=== PATIENT | male | born 1940 | race Caucasian/White ===

== ENCOUNTER 2019-07-13 17:06 | Emergency (ER) | payer MEDICARE ==
[~2019-07-13 17:06] MED LIST: Iopamidol-370 76% 500 ML 1 ML ONE
[2019-07-13 18:12] LABS: #Eosinphils 0.4 thou/uL (0.0-0.7); #Lymphocytes 1.2 thou/uL (1.20-3.40); #Monocytes 0.6 thou/uL (0.11-0.59); #Neutrophils 3.3 thou/uL (1.40-6.50); %Basophils 0.5 % (0.0-1.0); %Eosinophils 6.9 % (0.0-10.0); %Monocytes 11.8 % (0.0-10.0); %Neutrophils 59.9 % (42.0-75.0); Mean Corpuscular HGB CONC 33.3 g/dL (32.0-36.0); Mean Corpuscular Hemoglobin 33.1 pg (27.0-31.0); Mean Corpuscular Volume 99.2 fL (78.0-98.0); Platelet Count 181 thou/uL (130-400); RBC Distribution Width 11.1 % (11.5-14.5); Red Blood Cell (RBC) Count 3.62 mill/uL (4.70-6.10); White Blood Cell (WBC) Count 5.5 thou/uL (4.8-10.8)
--- NOTE | 2019-07-13 18:29 | RAD ---
XR Chest 1 View Portable History: Pain Comparison: None. Findings: The lungs are clear. No pneumothorax. No effusion. No acute osseous abnormality. Multiple m idline sternotomy wires. Impression: No acute intrathoracic abnormality.
[2019-07-13 18:34] LABS: ALT (SGPT) 26 U/L (8-55); AST (SGOT) 21 U/L (5-34); Albumin 4.1 g/dL (3.4-4.8); Alkaline Phosphatase 68 U/L (40-110); Anion Gap 10 mmol/L (10-20); BUN (Urea Nitrogen) 13 mg/dL (8.4-25.7); Bilirubin, Total 0.4 mg/dL (0.2-1.2); Calc. Creatinine Clearance 0 mL/min (70-130); Calcium 9.2 mg/dL (7.8-10.44); Carbon Dioxide 31 mmol/L (23-31); Chloride 105 mmol/L (98-107); Estimated GFR-MDRD Greater than 90; Globulin 2.7 g/dL (2.4-3.5); Glucose 79 mg/dL (83-110); Potassium 4.3 mmol/L (3.5-5.1); Protein, Total 6.8 g/dL (5.8-8.1); Sodium 142 mmol/L (136-145)
--- NOTE | 2019-07-13 21:27 | CT ---
CTA Angio Lwr Ext Lt W WO History: Decreased circulation Comparison: None. Findings: CT angiogram of the left lower extremity was performed after the intravenous administration of contrast. 3-D rendering provided. Visualized intrapelvic soft tissues are unremarkable. There is no acute osseous abnormality. Enthesop athic changes of the greater trochanter. The motion artifact limits evaluation of the ankle. The common femoral artery is patent with mild atherosclerotic plaque. Deep femoral artery and femoral artery are both patent. Surgical clips along the medial aspect of the left thigh. Multifocal less than 30% stenoses of the popliteal artery. Anterior tibial artery takeoff is normal. There is a focal 70% stenosis of the posterior tibial artery 2 cm distal to the trifurcation. Extensive atherosclerotic plaque throughout the peroneal artery and posterior tibial artery with mult ifocal 50% stenoses. Evaluation of the dorsalis pedis anterior tibial artery and posterior tibial artery of the ankle is limited due to patient movement. Anterior tibial artery is patent. Peroneal ar paola is patent. Impression: Patent vasculature to the foot although ankle evaluation is limited due to extensive cassy on. There is a focal high-grade stenosis of the posterior tibial artery with extensive atherosclerotic plaque of the posterior tibial artery. No focal high-grade stenosis of the common fem oral, femoral, or popliteal arteries.
== END 2019-07-13 22:36 | disposition home or self-care (01) ==
LOC: ERS 17:06
DX: M79.652 Pain in left thigh (principal); I25.10 Atherosclerotic heart disease of native coronary artery without angina pectoris; Z79.82 Long term (current) use of aspirin; Z79.899 Other long term (current) drug therapy
CPT/HCPCS: 36415; 71045; 80053; 84484; 85025; 85379; 93005; 94760; Q9967

== ENCOUNTER 2021-05-01 22:55 | Inpatient (IN) | payer MEDICARE, OTHER ==
[2021-05-02] MEDS ORDERED: Morphine 4 MG/ML VIAL ONE ×2 (00:15→01:13)
[2021-05-02] MEDS ORDERED: Acetaminophen 500 MG TAB ONE (00:15)
[2021-05-02 00:34] LABS: #Eosinphils 0.4 thou/uL (0.0-0.7); #Lymphocytes 1.2 thou/uL (1.20-3.40); #Monocytes 0.8 thou/uL (0.11-0.59); #Neutrophils 4.3 thou/uL (1.40-6.50); %Basophils 0.3 % (0.0-1.0); %Eosinophils 5.7 % (0.0-10.0); %Lymphocytes 17.7 % (21.0-51.0); %Monocytes 11.4 % (0.0-10.0); Hemoglobin 11.8 g/dL (14.0-18.0); Mean Corpuscular HGB CONC 34.4 g/dL (32.0-36.0); Mean Corpuscular Hemoglobin 34.6 pg (27.0-31.0); Mean Platelet Volume 7.1 fL (7.4-10.4); Platelet Count 177 thou/uL (130-400); RBC Distribution Width 10.7 % (11.5-14.5); Red Blood Cell (RBC) Count 3.42 mill/uL (4.70-6.10); White Blood Cell (WBC) Count 6.5 thou/uL (4.8-10.8)
[2021-05-02 00:47] LABS: Prothrombin Time 13.5 sec (12.0-14.7)
[2021-05-02 00:48] LABS: PTT 37.1 sec (22.9-36.1)
[2021-05-02 00:53] LABS: ALT (SGPT) 14 U/L (8-55); AST (SGOT) 16 U/L (5-34); Albumin 3.6 g/dL (3.4-4.8); Alkaline Phosphatase 71 U/L (40-110); Anion Gap 11 mmol/L (10-20); BUN (Urea Nitrogen) 20 mg/dL (8.4-25.7); Bilirubin, Total 0.4 mg/dL (0.2-1.2); Calc. Creatinine Clearance 0 mL/min (70-130); Calcium 8.9 mg/dL (7.8-10.44); Carbon Dioxide 30 mmol/L (23-31); Chloride 104 mmol/L (98-107); Globulin 2.6 g/dL (2.4-3.5); Glucose 144 mg/dL (83-110); Potassium 4.1 mmol/L (3.5-5.1); Protein, Total 6.2 g/dL (5.8-8.1); Sodium 141 mmol/L (136-145)
[2021-05-02] MEDS ORDERED: Cephalexin 250 MG CAP PO SCH (01:30)
[2021-05-02] MEDS ORDERED: Acetaminophen 325 MG TAB PO PRN (01:34)
[2021-05-02] MEDS ORDERED: Ondansetron ODT 4 MG TAB PO PRN (01:34)
[2021-05-02] MEDS ORDERED: hydrALAZINE 20 MG/ML VIAL SLOW IVP PRN (01:36)
[2021-05-02] MEDS ORDERED: Morphine 2 MG/ML VIAL SLOW IVP PRN (01:36)
[2021-05-02] MEDS ORDERED: Cephalexin 250 MG CAP ONE (02:14)
[2021-05-02 03:17] VITALS: BMI 19.3
[2021-05-02 04:14] LABS: #Eosinphils 0.1 thou/uL (0.0-0.7); #Lymphocytes 0.7 thou/uL (1.20-3.40); #Monocytes 0.5 thou/uL (0.11-0.59); #Neutrophils 6.6 thou/uL (1.40-6.50); %Basophils 0.1 % (0.0-1.0); %Eosinophils 0.8 % (0.0-10.0); %Lymphocytes 9.1 % (21.0-51.0); %Neutrophils 84.1 % (42.0-75.0); Hemoglobin 10.7 g/dL (14.0-18.0); Mean Corpuscular HGB CONC 33.3 g/dL (32.0-36.0); Mean Corpuscular Hemoglobin 33.5 pg (27.0-31.0); Mean Platelet Volume 7.2 fL (7.4-10.4); Platelet Count 162 thou/uL (130-400); RBC Distribution Width 10.6 % (11.5-14.5); Red Blood Cell (RBC) Count 3.18 mill/uL (4.70-6.10); White Blood Cell (WBC) Count 7.8 thou/uL (4.8-10.8)
[2021-05-02 04:31] LABS: ALT (SGPT) 14 U/L (8-55); AST (SGOT) 16 U/L (5-34); Albumin 3.5 g/dL (3.4-4.8); Alkaline Phosphatase 64 U/L (40-110); Anion Gap 9 mmol/L (10-20); BUN (Urea Nitrogen) 20 mg/dL (8.4-25.7); Bilirubin, Total 0.4 mg/dL (0.2-1.2); Calc. Creatinine Clearance 56 mL/min (70-130); Calcium 8.8 mg/dL (7.8-10.44); Carbon Dioxide 32 mmol/L (23-31); Chloride 103 mmol/L (98-107); Globulin 2.5 g/dL (2.4-3.5); Glucose 149 mg/dL (83-110); Potassium 4.3 mmol/L (3.5-5.1); Sodium 140 mmol/L (136-145)
[2021-05-02] MEDS: Cephalexin 250 MG CAP PO SCH (19:03)
[2021-05-02 19:22] LABS: SARS-CoV-2 PCR by NAA Not Detected (NotDetected)
[2021-05-02] MEDS: Atorvastatin Calcium 10 MG TAB PO SCH (20:21)
[2021-05-03] MEDS: Cephalexin 250 MG CAP PO SCH ×2 (00:25→05:31)
[2021-05-03] MEDS ORDERED: Morphine 2 MG/ML VIAL SLOW IVP SCH (09:30)
[2021-05-03 09:42] LABS: Hemoglobin 11.2 g/dL (14.0-18.0); Mean Corpuscular HGB CONC 34.2 g/dL (32.0-36.0); Mean Corpuscular Hemoglobin 34.2 pg (27.0-31.0); Mean Platelet Volume 7.1 fL (7.4-10.4); Platelet Count 203 thou/uL (130-400); RBC Distribution Width 10.9 % (11.5-14.5); Red Blood Cell (RBC) Count 3.29 mill/uL (4.70-6.10); White Blood Cell (WBC) Count 6.6 thou/uL (4.8-10.8)
[2021-05-03 09:55] LABS: INR-International Normal Ratio 1.1; Prothrombin Time 14.5 sec (12.0-14.7)
[2021-05-03 09:58] LABS: Anion Gap 17 mmol/L (10-20); BUN (Urea Nitrogen) 16 mg/dL (8.4-25.7); Calc. Creatinine Clearance 56 mL/min (70-130); Calcium 8.8 mg/dL (7.8-10.44); Carbon Dioxide 22 mmol/L (23-31); Chloride 104 mmol/L (98-107); Glucose 127 mg/dL (83-110); Potassium 3.8 mmol/L (3.5-5.1); Sodium 139 mmol/L (136-145)
[2021-05-03] MEDS ORDERED: CEFAZOLIN 1 GM in Sodium Chloride 0.9% 100 ML IVPB SCH (10:00)
[2021-05-03] MEDS ORDERED: ceFAZolin 1 GM/D5W 1 GM in Premix Bag 1 BAG IVPB SCH ×2 (10:15→18:00)
[2021-05-03] MEDS ORDERED: Vancomycin 1 GM in Premix Bag 1 BAG IVPB SCH (10:30)
[2021-05-03] MEDS ORDERED: CEFAZOLIN 1 GM VIAL ONE ×2 (10:47→11:28)
[2021-05-03] MEDS ORDERED: Gentamicin 80 MG/2 ML VIAL ONE ×2 (10:48→11:28)
[2021-05-03] MEDS: Finasteride 5 MG TAB PO SCH (10:56)
[2021-05-03] MEDS: Mirtazapine 15 MG Soltab PO SCH (10:57)
[2021-05-03] MEDS: Tamsulosin HCl 0.4 MG CAP PO SCH (10:57)
[2021-05-03] MEDS ORDERED: Fentanyl 100 MCG/2 ML VIAL ONE (11:16)
[2021-05-03] MEDS ORDERED: Midazolam HCl 2 mg/2 ml Vial ONE (11:17)
[2021-05-03] MEDS: HYDROcodone/Acetaminophen 5/325 mg Tablet PO PRN (13:53)
[2021-05-03] MEDS: Morphine 2 MG/ML VIAL SLOW IVP PRN (16:25)
[2021-05-03] MEDS: Atorvastatin Calcium 10 MG TAB PO SCH (20:16)
[2021-05-03] MEDS: CEFAZOLIN 2 GM in Premix Bag 1 BAG IVPB SCH (20:17)
[2021-05-04] MEDS: CEFAZOLIN 2 GM in Premix Bag 1 BAG IVPB SCH ×2 (04:13→11:56)
[2021-05-04] MEDS: Mirtazapine 15 MG Soltab PO SCH (08:35)
[2021-05-04] MEDS: Finasteride 5 MG TAB PO SCH (08:35)
[2021-05-04] MEDS: Tamsulosin HCl 0.4 MG CAP PO SCH (08:36)
[2021-05-04] MEDS: HYDROcodone/Acetaminophen 5/325 mg Tablet PO PRN (08:36)
[2021-05-04] MEDS: Morphine 2 MG/ML VIAL SLOW IVP PRN (12:05)
[2021-05-04] MEDS ORDERED: Polyethylene Glycol 3350 17 GM Packet PO PRN (18:31)
[2021-05-04] MEDS ORDERED: Docusate 100 MG CAP PO PRN (18:31)
[2021-05-04] MEDS: Atorvastatin Calcium 10 MG TAB PO SCH (20:29)
[2021-05-05 08:15] VITALS: BP 99/56; TEMP 97.3
[2021-05-05] MEDS: Mirtazapine 15 MG Soltab PO SCH (09:15)
[2021-05-05] MEDS: Tamsulosin HCl 0.4 MG CAP PO SCH (09:15)
[2021-05-05] MEDS: Finasteride 5 MG TAB PO SCH (09:15)
== END 2021-05-05 11:42 | disposition home or self-care (01) | DRG 908 ==
LOC: ERS 22:55 → OBSVTOIN 05-02 01:34 → 2NO 05-02 01:34
PROVIDERS: ADMIT Internal Medicine; ATTEND Family Medicine
PROC: 0K9H0ZZ Drainage of Right Thorax Muscle, Open Approach (ICD-10-PCS; principal; 2021-05-03)
PROC: 0W380ZZ Control Bleeding in Chest Wall, Open Approach (ICD-10-PCS; 2021-05-03)
DX: I97.638 Postprocedural hematoma of a circulatory system organ or structure following other circulatory system procedure (principal); I50.22 Chronic systolic (congestive) heart failure; I48.3 Typical atrial flutter; Y83.1 Surgical operation with implant of artificial internal device as the cause of abnormal reaction of the patient, or of later complication, without mention of misadventure at the time of the procedure; Z20.822 Contact with and (suspected) exposure to COVID-19; I25.10 Atherosclerotic heart disease of native coronary artery without angina pectoris; I25.5 Ischemic cardiomyopathy; I11.0 Hypertensive heart disease with heart failure; R79.1 Abnormal coagulation profile; H91.90 Unspecified hearing loss, unspecified ear; E78.00 Pure hypercholesterolemia, unspecified; I48.0 Paroxysmal atrial fibrillation; N40.0 Benign prostatic hyperplasia without lower urinary tract symptoms; I44.7 Left bundle-branch block, unspecified; E78.5 Hyperlipidemia, unspecified; Z95.1 Presence of aortocoronary bypass graft; Z88.8 Allergy status to other drugs, medicaments and biological substances; Z79.899 Other long term (current) drug therapy; Z79.82 Long term (current) use of aspirin
CPT/HCPCS: 36415; 71045; 80048; 80053; 84484; 85025; 85027; 85610; 85730; 96374; 96376; 99152; 99153; C1763; J0360; J0690; J1580; J2250; J2270; J3010; J3370; Q0162; U0003; U0005

== ENCOUNTER 2021-05-07 17:29 | Inpatient (IN) | payer MEDICARE ==
[2021-05-07 18:33] LABS: #Lymphocytes 0.8 thou/uL (1.20-3.40); #Monocytes 0.9 thou/uL (0.11-0.59); #Neutrophils 11.8 thou/uL (1.40-6.50); %Basophils 0.1 % (0.0-1.0); %Lymphocytes 6.2 % (21.0-51.0); %Monocytes 6.9 % (0.0-10.0); %Neutrophils 86.8 % (42.0-75.0); Hemoglobin 8.6 g/dL (14.0-18.0); Mean Corpuscular HGB CONC 35.1 g/dL (32.0-36.0); Mean Corpuscular Hemoglobin 34.8 pg (27.0-31.0); Mean Corpuscular Volume 99.1 fL (78.0-98.0); Mean Platelet Volume 6.8 fL (7.4-10.4); Platelet Count 190 thou/uL (130-400); RBC Distribution Width 11.2 % (11.5-14.5); Red Blood Cell (RBC) Count 2.47 mill/uL (4.70-6.10); White Blood Cell (WBC) Count 13.6 thou/uL (4.8-10.8)
[2021-05-07] MEDS ORDERED: Lorazepam 2 MG/ML VIAL ONE (18:43)
[2021-05-07 18:45] LABS: INR-International Normal Ratio 1.1; PTT 33.1 sec (22.9-36.1); Prothrombin Time 14.3 sec (12.0-14.7)
[2021-05-07 18:58] LABS: ALT (SGPT) 10 U/L (8-55); AST (SGOT) 19 U/L (5-34); Albumin 3.7 g/dL (3.4-4.8); Alkaline Phosphatase 64 U/L (40-110); Anion Gap 14 mmol/L (10-20); BUN (Urea Nitrogen) 19 mg/dL (8.4-25.7); Bilirubin, Total 1.1 mg/dL (0.2-1.2); Calc. Creatinine Clearance 0 mL/min (70-130); Calcium 8.7 mg/dL (7.8-10.44); Carbon Dioxide 24 mmol/L (23-31); Chloride 103 mmol/L (98-107); Globulin 2.5 g/dL (2.4-3.5); Glucose 107 mg/dL (83-110); Potassium 3.6 mmol/L (3.5-5.1); Protein, Total 6.2 g/dL (5.8-8.1); Sodium 137 mmol/L (136-145)
[2021-05-07 19:05] LABS: SARS-CoV-2 NAA Rapid Test Not Detected (NotDetected)
[2021-05-07 19:22] LABS: CKMB 1.2 ng/mL (0-6.6)
[2021-05-07 19:59] LABS: Bacteria/HPF None Seen HPF (None Seen); Bilirubin Negative (Negative); Blood, Urine Trace (Negative); Clarity Turbid (Clear); Glucose, Urine (Dipstick) Normal (Negative); Ketone, Urine Trace mg/dL (Negative); Leukocyte Negative Leu/uL (Negative); Nitrite Negative (Negative); Protein, Urine (Dipstick) Negative (Neg-Trace); Specific Gravity, Urine 1.018 (1.002-1.036); Squamous Epithelial None Seen HPF (0-3); Urobilinogen Normal mg/dL (Less than 2); WBC/HPF 0-3 HPF (0-3); pH, Urine 7.5 (5.0-9.0)
[2021-05-07] MEDS ORDERED: cefTRIAXone\\ROCEPHIN 1 GM VIAL ONE (20:15)
[2021-05-07] MEDS ORDERED: Furosemide 40 MG/4 ML VIAL ONE (20:15)
[2021-05-07] MEDS ORDERED: Azithromycin 500 MG VIAL ONE (21:26)
[2021-05-07 22:08] LABS: Troponin I 0.049 ng/mL (< 0.028)
[2021-05-08 01:36] LABS: Troponin I 0.045 ng/mL (< 0.028)
[2021-05-08] MEDS ORDERED: VANCOMYCIN 1.25 GM/250 ML BAG 1.25 GM in Premix Bag 1 BAG IVPB SCH (02:34)
[2021-05-08] MEDS ORDERED: Sodium Chloride 0.9% 1,000 ML IV SCH (02:45)
[2021-05-08] MEDS ORDERED: Piperacillin/Tazobactam 3.375 GM in Sodium Chloride 0.9% 100 ML IVPB SCH (03:00)
[2021-05-08] MEDS: Sodium Chloride 0.9% 1,000 ML IV SCH (03:40)
[2021-05-08] MEDS ORDERED: Vancomycin 1.5 GRAM/300 ML BAG 1.5 GM in Premix Bag 1 BAG IVPB SCH (04:00)
[2021-05-08] MEDS: Piperacillin/Tazobactam 3.375 GM in Sodium Chloride 0.9% 100 ML IVPB SCH ×3 (08:16→23:23)
[2021-05-08 08:53] LABS: #Eosinphils 0.1 thou/uL (0.0-0.7); #Lymphocytes 0.9 thou/uL (1.20-3.40); #Monocytes 0.7 thou/uL (0.11-0.59); #Neutrophils 5.1 thou/uL (1.40-6.50); %Basophils 0.1 % (0.0-1.0); %Eosinophils 1.4 % (0.0-10.0); %Lymphocytes 12.7 % (21.0-51.0); %Monocytes 10.6 % (0.0-10.0); %Neutrophils 75.3 % (42.0-75.0); Hemoglobin 7.6 g/dL (14.0-18.0); Mean Corpuscular HGB CONC 33.6 g/dL (32.0-36.0); Mean Platelet Volume 7.2 fL (7.4-10.4); Platelet Count 190 thou/uL (130-400); RBC Distribution Width 11.4 % (11.5-14.5); Red Blood Cell (RBC) Count 2.24 mill/uL (4.70-6.10); White Blood Cell (WBC) Count 6.7 thou/uL (4.8-10.8)
[2021-05-09] MEDS: Vancomycin 1 GM in Premix Bag 1 BAG IVPB SCH ×2 (03:55→09:56)
[2021-05-09] MEDS ORDERED: Finasteride 5 MG TAB PO SCH (09:45)
[2021-05-09] MEDS ORDERED: Tamsulosin HCl 0.4 MG CAP PO SCH (09:45)
[2021-05-09] MEDS: Sodium Chloride 0.9% 1,000 ML IV SCH (09:56)
[2021-05-09] MEDS: Piperacillin/Tazobactam 3.375 GM in Sodium Chloride 0.9% 100 ML IVPB SCH ×2 (09:58→16:06)
[2021-05-09 11:13] LABS: #Eosinphils 0.3 thou/uL (0.0-0.7); #Lymphocytes 0.7 thou/uL (1.20-3.40); #Monocytes 0.6 thou/uL (0.11-0.59); #Neutrophils 3.9 thou/uL (1.40-6.50); %Basophils 0.2 % (0.0-1.0); %Eosinophils 4.7 % (0.0-10.0); %Lymphocytes 12.8 % (21.0-51.0); %Monocytes 11.7 % (0.0-10.0); %Neutrophils 70.7 % (42.0-75.0); Hemoglobin 9.1 g/dL (14.0-18.0); Mean Corpuscular HGB CONC 34.2 g/dL (32.0-36.0); Mean Corpuscular Hemoglobin 34.6 pg (27.0-31.0); Mean Platelet Volume 6.9 fL (7.4-10.4); Platelet Count 208 thou/uL (130-400); RBC Distribution Width 11.5 % (11.5-14.5); Red Blood Cell (RBC) Count 2.63 mill/uL (4.70-6.10); White Blood Cell (WBC) Count 5.5 thou/uL (4.8-10.8)
[2021-05-09] MEDS: Atorvastatin Calcium 10 MG TAB PO SCH (20:58)
[2021-05-10] MEDS: Piperacillin/Tazobactam 3.375 GM in Sodium Chloride 0.9% 100 ML IVPB SCH ×3 (00:25→16:46)
[2021-05-10] MEDS: Sodium Chloride 0.9% 1,000 ML IV SCH ×2 (04:26→15:42)
[2021-05-10] MEDS: Vancomycin 1 GM in Premix Bag 1 BAG IVPB SCH ×2 (05:18→15:13)
[2021-05-10 05:52] LABS: Vancomycin, Trough 3.5 ug/mL
[2021-05-10] MEDS: Tamsulosin HCl 0.4 MG CAP PO SCH (08:38)
[2021-05-10] MEDS: Mirtazapine 15 MG Soltab PO SCH (08:38)
[2021-05-10] MEDS: Finasteride 5 MG TAB PO SCH (08:38)
[2021-05-10 13:46] LABS: Anion Gap 12 mmol/L (10-20); BUN (Urea Nitrogen) 9 mg/dL (8.4-25.7); Calc. Creatinine Clearance 52 mL/min (70-130); Calcium 8.5 mg/dL (7.8-10.44); Carbon Dioxide 26 mmol/L (23-31); Chloride 106 mmol/L (98-107); Glucose 129 mg/dL (83-110); Magnesium 2.2 mg/dL (1.6-2.6); Potassium 3.3 mmol/L (3.5-5.1); Sodium 141 mmol/L (136-145)
[2021-05-10] MEDS: Atorvastatin Calcium 10 MG TAB PO SCH (22:17)
[2021-05-11] MEDS: Piperacillin/Tazobactam 3.375 GM in Sodium Chloride 0.9% 100 ML IVPB SCH ×3 (01:28→18:02)
[2021-05-11] MEDS: Vancomycin 1 GM in Premix Bag 1 BAG IVPB SCH ×2 (06:05→17:00)
[2021-05-11] MEDS: Sodium Chloride 0.9% 1,000 ML IV SCH ×2 (06:05→17:00)
[2021-05-11] MEDS: Mirtazapine 15 MG Soltab PO SCH (09:26)
[2021-05-11] MEDS: Tamsulosin HCl 0.4 MG CAP PO SCH (09:26)
[2021-05-11] MEDS: Finasteride 5 MG TAB PO SCH (09:27)
[2021-05-11 10:37] LABS: #Eosinphils 0.3 thou/uL (0.0-0.7); #Lymphocytes 0.8 thou/uL (1.20-3.40); #Monocytes 0.6 thou/uL (0.11-0.59); #Neutrophils 3.5 thou/uL (1.40-6.50); %Basophils 0.2 % (0.0-1.0); %Eosinophils 5.7 % (0.0-10.0); %Monocytes 10.7 % (0.0-10.0); %Neutrophils 67.4 % (42.0-75.0); Mean Corpuscular HGB CONC 33.8 g/dL (32.0-36.0); Mean Platelet Volume 6.6 fL (7.4-10.4); Platelet Count 229 thou/uL (130-400); RBC Distribution Width 11.7 % (11.5-14.5); Red Blood Cell (RBC) Count 2.65 mill/uL (4.70-6.10); White Blood Cell (WBC) Count 5.2 thou/uL (4.8-10.8)
[2021-05-11 11:01] LABS: Anion Gap 9 mmol/L (10-20); BUN (Urea Nitrogen) 9 mg/dL (8.4-25.7); Calc. Creatinine Clearance 49 mL/min (70-130); Calcium 8.3 mg/dL (7.8-10.44); Carbon Dioxide 26 mmol/L (23-31); Chloride 104 mmol/L (98-107); Glucose 129 mg/dL (83-110); Potassium 3.4 mmol/L (3.5-5.1); Sodium 136 mmol/L (136-145)
[2021-05-11 15:48] LABS: Vancomycin, Trough 18.2 ug/mL
[2021-05-11] MEDS: Atorvastatin Calcium 10 MG TAB PO SCH (20:43)
[2021-05-12] MEDS: Piperacillin/Tazobactam 3.375 GM in Sodium Chloride 0.9% 100 ML IVPB SCH ×2 (00:25→07:54)
[2021-05-12] MEDS: Vancomycin 1 GM in Premix Bag 1 BAG IVPB SCH (04:35)
[2021-05-12 05:33] LABS: #Eosinphils 0.3 thou/uL (0.0-0.7); #Lymphocytes 0.8 thou/uL (1.20-3.40); #Monocytes 0.8 thou/uL (0.11-0.59); #Neutrophils 3.5 thou/uL (1.40-6.50); %Basophils 0.3 % (0.0-1.0); %Eosinophils 5.7 % (0.0-10.0); %Lymphocytes 15.2 % (21.0-51.0); %Monocytes 14.7 % (0.0-10.0); %Neutrophils 64.1 % (42.0-75.0); Hemoglobin 8.2 g/dL (14.0-18.0); Mean Corpuscular HGB CONC 34.7 g/dL (32.0-36.0); Mean Corpuscular Hemoglobin 34.9 pg (27.0-31.0); Mean Platelet Volume 6.6 fL (7.4-10.4); Platelet Count 234 thou/uL (130-400); RBC Distribution Width 11.6 % (11.5-14.5); Red Blood Cell (RBC) Count 2.35 mill/uL (4.70-6.10); White Blood Cell (WBC) Count 5.5 thou/uL (4.8-10.8)
[2021-05-12 06:00] LABS: Anion Gap 12 mmol/L (10-20); BUN (Urea Nitrogen) 10 mg/dL (8.4-25.7); Calc. Creatinine Clearance 35 mL/min (70-130); Calcium 8.1 mg/dL (7.8-10.44); Carbon Dioxide 26 mmol/L (23-31); Chloride 108 mmol/L (98-107); Glucose 85 mg/dL (83-110); Potassium 3.7 mmol/L (3.5-5.1); Sodium 142 mmol/L (136-145)
[2021-05-12] MEDS: Tamsulosin HCl 0.4 MG CAP PO SCH (09:35)
[2021-05-12] MEDS: Finasteride 5 MG TAB PO SCH (09:35)
[2021-05-12] MEDS: Mirtazapine 15 MG Soltab PO SCH (09:35)
[2021-05-12] MEDS: Sodium Chloride 0.9% 1,000 ML IV SCH (09:38)
[2021-05-12 11:58] VITALS: BP 170/88; TEMP 97.9
== END 2021-05-12 15:55 | disposition home or self-care (01) | DRG 920 ==
LOC: ERS 17:29 → 2NO 20:34
PROVIDERS: ADMIT Student in an Organized Health Care Education/Training Program; ATTEND Internal Medicine
DX: L76.32 Postprocedural hematoma of skin and subcutaneous tissue following other procedure (principal); T82.7XXA Infection and inflammatory reaction due to other cardiac and vascular devices, implants and grafts, initial encounter; Z20.822 Contact with and (suspected) exposure to COVID-19; I25.10 Atherosclerotic heart disease of native coronary artery without angina pectoris; E78.00 Pure hypercholesterolemia, unspecified; I11.0 Hypertensive heart disease with heart failure; I08.3 Combined rheumatic disorders of mitral, aortic and tricuspid valves; Y83.1 Surgical operation with implant of artificial internal device as the cause of abnormal reaction of the patient, or of later complication, without mention of misadventure at the time of the procedure; E78.5 Hyperlipidemia, unspecified; D50.0 Iron deficiency anemia secondary to blood loss (chronic); N40.0 Benign prostatic hyperplasia without lower urinary tract symptoms; I50.9 Heart failure, unspecified; T80.89XA Other complications following infusion, transfusion and therapeutic injection, initial encounter; Y84.8 Other medical procedures as the cause of abnormal reaction of the patient, or of later complication, without mention of misadventure at the time of the procedure; Z95.1 Presence of aortocoronary bypass graft; Z79.899 Other long term (current) drug therapy; Z79.82 Long term (current) use of aspirin
CPT/HCPCS: 36415; 51701; 70450; 71045; 71275; 80048; 80053; 80202; 81003; 81015; 82553; 83605; 83735; 83880; 84484; 85025; 85610; 85730; 87040; 87086; 93005; 93306; 94760; 96365; 96367; 96375; J0456; J0696; J1940; J2060; J2543; J3370; J3490; J7050; U0002

== ENCOUNTER 2021-08-04 13:44 | Outpatient (CLI) | payer MEDICARE | END 2021-08-04 13:45 | disposition home or self-care (01) | LOC: BICULT 13:44 | PROVIDERS: ATTEND Family Medicine | DX: R55 Syncope and collapse (principal); I65.23 Occlusion and stenosis of bilateral carotid arteries; I70.0 Atherosclerosis of aorta | CPT/HCPCS: 93880 ==

== ENCOUNTER 2021-09-17 09:04 | Outpatient (CLI) | payer OTHER | END 2021-09-17 09:05 | disposition home or self-care (01) | PROVIDERS: ATTEND Family Medicine | DX: R13.13 Dysphagia, pharyngeal phase (principal); R63.30 Feeding difficulties, unspecified | CPT/HCPCS: 74230 ==

== ENCOUNTER 2022-02-02 13:59 | Outpatient (CLI) | payer OTHER | END 2022-02-02 14:00 | disposition home or self-care (01) | LOC: MRI 13:59 | PROVIDERS: ATTEND Psychiatry & Neurology Neurology | DX: R41.3 Other amnesia (principal); I67.89 Other cerebrovascular disease | CPT/HCPCS: 70553 ==

== ENCOUNTER 2022-04-13 13:22 | Inpatient (IN) | payer MEDICARE, OTHER ==
[2022-04-13] MEDS ORDERED: Morphine 4 MG/ML VIAL ONE (13:42)
[2022-04-13] MEDS ORDERED: Ketorolac Tromethamine 30 MG/ML VIAL ONE (13:42)
[2022-04-13 14:10] LABS: #Lymphocytes 0.8 thou/uL (1.20-3.40); #Monocytes 0.5 thou/uL (0.11-0.59); #Neutrophils 4.4 thou/uL (1.40-6.50); %Basophils 0.1 % (0.0-1.0); %Eosinophils 0.8 % (0.0-10.0); %Lymphocytes 13.6 % (21.0-51.0); %Monocytes 8.7 % (0.0-10.0); %Neutrophils 76.8 % (42.0-75.0); Hemoglobin 12.2 g/dL (14.0-18.0); Mean Corpuscular HGB CONC 33.9 g/dL (32.0-36.0); Mean Corpuscular Hemoglobin 33.8 pg (27.0-31.0); Mean Corpuscular Volume 99.7 fL (78.0-98.0); Mean Platelet Volume 6.7 fL (7.4-10.4); Platelet Count 169 thou/uL (130-400); White Blood Cell (WBC) Count 5.8 thou/uL (4.8-10.8)
[2022-04-13] MEDS ORDERED: Ondansetron PF 4 MG/2 ML Vial IVP PRN (14:27)
[2022-04-13] MEDS ORDERED: traMADol HCl 50 MG TAB PO PRN (14:27)
[2022-04-13] MEDS ORDERED: hydrALAZINE 20 MG/ML VIAL SLOW IVP PRN (14:27)
[2022-04-13] MEDS ORDERED: Promethazine HCl 25 MG/ML VIAL IM PRN (14:27)
[2022-04-13] MEDS ORDERED: Dextrose 5% in Water 1,000 ML IV PRN (14:28)
[2022-04-13] MEDS ORDERED: Morphine 4 MG/ML VIAL SLOW IVP PRN (14:28)
[2022-04-13] MEDS ORDERED: Dextrose 50% Abboject 50 ML SYRINGE SLOW IVP PRN (14:28)
[2022-04-13] MEDS ORDERED: Morphine 2 MG/ML VIAL SLOW IVP PRN ×2 (14:28→18:48)
[2022-04-13 14:41] LABS: ALT (SGPT) 37 U/L (8-55); AST (SGOT) 28 U/L (5-34); Albumin 4.3 g/dL (3.4-4.8); Alkaline Phosphatase 63 U/L (40-110); Anion Gap 19 mmol/L (10-20); BUN (Urea Nitrogen) 22 mg/dL (8.4-25.7); Bilirubin, Total 1.3 mg/dL (0.2-1.2); Calc. Creatinine Clearance 0 mL/min (70-130); Calcium 9.4 mg/dL (7.8-10.44); Carbon Dioxide 21 mmol/L (23-31); Chloride 103 mmol/L (98-107); Estimated GFR 82; Glucose 114 mg/dL (83-110); Potassium 4.1 mmol/L (3.5-5.1); Protein, Total 7.3 g/dL (5.8-8.1); Sodium 139 mmol/L (136-145)
[2022-04-13] MEDS ORDERED: HYDROmorphone 0.5 MG/0.5 ML SYRINGE ONE (14:55)
[2022-04-13 15:15] LABS: SARS-CoV-2 NAA Rapid Test Not Detected (NotDetected)
[2022-04-13 15:20] LABS: Magnesium 2.2 mg/dL (1.6-2.6); Phosphorus 2.1 mg/dL (2.3-4.7)
[2022-04-13 15:41] LABS: Anion Gap 18 mmol/L (10-20); BUN (Urea Nitrogen) 21 mg/dL (8.4-25.7); Calc. Creatinine Clearance 0 mL/min (70-130); Calcium 9.2 mg/dL (7.8-10.44); Carbon Dioxide 20 mmol/L (23-31); Chloride 104 mmol/L (98-107); Estimated GFR 87; Glucose 104 mg/dL (83-110); Potassium 3.9 mmol/L (3.5-5.1); Sodium 138 mmol/L (136-145)
[2022-04-13 20:16] VITALS: BMI 19.4
[2022-04-13] MEDS: traMADol HCl 50 MG TAB PO SCH ×2 (20:17→21:01)
[2022-04-13] MEDS: Acetaminophen 500 MG TAB PO SCH ×2 (20:17→21:01)
[2022-04-13] MEDS: Gabapentin 100 MG CAP PO SCH ×2 (20:17→21:02)
[2022-04-13] MEDS: Famotidine 20 MG TAB PO SCH (21:01)
[2022-04-13] MEDS: Cyclobenzaprine 10 MG TAB PO PRN (21:02)
[2022-04-13] MEDS: Senokot S 8.6-50 MG TAB PO SCH (21:02)
[2022-04-14] MEDS: Acetaminophen 500 MG TAB PO SCH ×4 (03:22→20:21)
[2022-04-14] MEDS: traMADol HCl 50 MG TAB PO SCH ×4 (03:23→20:23)
[2022-04-14] MEDS: Gabapentin 100 MG CAP PO SCH ×3 (05:13→20:27)
[2022-04-14 05:34] LABS: #Eosinphils 0.2 thou/uL (0.0-0.7); #Lymphocytes 0.7 thou/uL (1.20-3.40); #Monocytes 0.8 thou/uL (0.11-0.59); #Neutrophils 4.1 thou/uL (1.40-6.50); %Basophils 0.5 % (0.0-1.0); %Eosinophils 3.9 % (0.0-10.0); %Lymphocytes 11.9 % (21.0-51.0); %Monocytes 12.8 % (0.0-10.0); %Neutrophils 70.9 % (42.0-75.0); Hemoglobin 10.7 g/dL (14.0-18.0); Mean Corpuscular Hemoglobin 35.7 pg (27.0-31.0); Mean Platelet Volume 6.9 fL (7.4-10.4); Platelet Count 122 thou/uL (130-400); RBC Distribution Width 10.9 % (11.5-14.5); Red Blood Cell (RBC) Count 3.01 mill/uL (4.70-6.10); White Blood Cell (WBC) Count 5.8 thou/uL (4.8-10.8)
[2022-04-14 05:42] LABS: INR-International Normal Ratio 1.2; Prothrombin Time 15.7 sec (12.0-14.7)
[2022-04-14 05:43] LABS: PTT 41.3 sec (22.9-36.1)
[2022-04-14 05:51] LABS: Bacteria/HPF None Seen HPF (None Seen); Bilirubin Negative (Negative); Blood, Urine 2+ (Negative); Glucose, Urine (Dipstick) Normal (Negative); Ketone, Urine 10 mg/dL (Negative); Leukocyte 75 Leu/uL (Negative); Nitrite Negative (Negative); Protein, Urine (Dipstick) 30 mg/dL (Neg-Trace); RBC/HPF 21-50 HPF (0-3); Specific Gravity, Urine 1.021 (1.002-1.036); Squamous Epithelial 0-3 HPF (0-3); Urobilinogen Normal mg/dL (Less than 2)
[2022-04-14 05:52] LABS: Clarity Hazy (Clear)
[2022-04-14 06:33] LABS: Anion Gap 11 mmol/L (10-20); BUN (Urea Nitrogen) 28 mg/dL (8.4-25.7); Calc. Creatinine Clearance 47 mL/min (70-130); Calcium 8.4 mg/dL (7.8-10.44); Carbon Dioxide 27 mmol/L (23-31); Chloride 102 mmol/L (98-107); Estimated GFR 72; Glucose 102 mg/dL (83-110); Magnesium 2.5 mg/dL (1.6-2.6); Phosphorus 3.9 mg/dL (2.3-4.7); Sodium 136 mmol/L (136-145)
[2022-04-14] MEDS ORDERED: CEFAZOLIN 2 GM in Sodium Chloride 0.9% 100 ML IVPB SCH (09:00)
[2022-04-14] MEDS: Senokot S 8.6-50 MG TAB PO SCH ×2 (09:14→20:26)
[2022-04-14] MEDS: Famotidine 20 MG TAB PO SCH ×2 (09:15→20:25)
[2022-04-14] MEDS: Polyethylene Glycol 3350 17 GM Packet PO SCH (09:15)
[2022-04-14] MEDS: Atorvastatin Calcium 10 MG TAB PO SCH (20:24)
[2022-04-14] MEDS: Mirtazapine 30 MG TAB PO SCH (20:25)
[2022-04-14] MEDS: Tamsulosin HCl 0.4 MG CAP PO SCH (20:27)
[2022-04-15] MEDS: Acetaminophen 500 MG TAB PO SCH ×4 (03:38→20:54)
[2022-04-15] MEDS: traMADol HCl 50 MG TAB PO SCH ×4 (03:39→20:55)
[2022-04-15] MEDS: Gabapentin 100 MG CAP PO SCH ×3 (06:09→22:46)
[2022-04-15 06:50] LABS: Anion Gap 12 mmol/L (10-20); BUN (Urea Nitrogen) 26 mg/dL (8.4-25.7); Calc. Creatinine Clearance 58 mL/min (70-130); Calcium 8.3 mg/dL (7.8-10.44); Carbon Dioxide 25 mmol/L (23-31); Chloride 101 mmol/L (98-107); Estimated GFR 87; Glucose 99 mg/dL (83-110); Magnesium 2.2 mg/dL (1.6-2.6); Phosphorus 3.4 mg/dL (2.3-4.7); Potassium 4.2 mmol/L (3.5-5.1); Sodium 134 mmol/L (136-145)
[2022-04-15 07:01] LABS: #Eosinphils 0.3 thou/uL (0.0-0.7); #Lymphocytes 0.5 thou/uL (1.20-3.40); #Monocytes 0.7 thou/uL (0.11-0.59); #Neutrophils 4.8 thou/uL (1.40-6.50); %Basophils 0.3 % (0.0-1.0); %Eosinophils 5.5 % (0.0-10.0); %Lymphocytes 7.9 % (21.0-51.0); %Monocytes 11.3 % (0.0-10.0); Hemoglobin 10.4 g/dL (14.0-18.0); Mean Corpuscular HGB CONC 33.8 g/dL (32.0-36.0); Mean Corpuscular Hemoglobin 34.1 pg (27.0-31.0); Mean Platelet Volume 6.8 fL (7.4-10.4); Platelet Count 116 thou/uL (130-400); Red Blood Cell (RBC) Count 3.05 mill/uL (4.70-6.10); White Blood Cell (WBC) Count 6.3 thou/uL (4.8-10.8)
[2022-04-15] MEDS: Famotidine 20 MG TAB PO SCH ×2 (09:10→20:54)
[2022-04-15] MEDS: Mirtazapine 15 MG Soltab PO SCH (09:11)
[2022-04-15] MEDS: Polyethylene Glycol 3350 17 GM Packet PO SCH (09:11)
[2022-04-15] MEDS: Senokot S 8.6-50 MG TAB PO SCH ×2 (09:11→20:54)
[2022-04-15] MEDS ORDERED: Ketamine 50 MG/ML (10ML VIAL) ONE (13:58)
[2022-04-15] MEDS ORDERED: CEFAZOLIN 2 GM VIAL ONE (13:59)
[2022-04-15] MEDS ORDERED: Sodium Chloride 0.9% 100 ML ONE (13:59)
[2022-04-15] MEDS ORDERED: fentaNYL Citrate/PF 100 MCG/2 ML SYRINGE ONE (14:02)
[2022-04-15] MEDS ORDERED: PROPOFOL 200 MG/20 ML VIAL ONE (14:15)
[2022-04-15] MEDS ORDERED: Succinylcholine 200 MG/10 ml SYRINGE FS ONE (14:15)
[2022-04-15] MEDS ORDERED: Dexamethasone 20 MG/5 ML VIAL ONE (14:15)
[2022-04-15] MEDS ORDERED: Ondansetron PF 4 MG/2 ML Vial ONE (14:15)
[2022-04-15] MEDS ORDERED: Lidocaine 1% MPF 2 ML VIAL ONE (14:15)
[2022-04-15] MEDS ORDERED: HYDROmorphone 2 MG/ML VIAL ONE (14:51)
[2022-04-15] MEDS ORDERED: HYDROmorphone 2 MG/ML VIAL SLOW IVP PRN (15:38)
[2022-04-15] MEDS ORDERED: Promethazine HCl 25 MG/ML VIAL IVPB PRN (15:38)
[2022-04-15] MEDS: Tamsulosin HCl 0.4 MG CAP PO SCH (20:54)
[2022-04-15] MEDS: Atorvastatin Calcium 10 MG TAB PO SCH (20:54)
[2022-04-15] MEDS: Mirtazapine 30 MG TAB PO SCH (21:05)
[2022-04-15] MEDS: CEFAZOLIN 2 GM in Sodium Chloride 0.9% 100 ML IVPB SCH (21:11)
[2022-04-16] MEDS: Acetaminophen 500 MG TAB PO SCH ×2 (03:52→16:33)
[2022-04-16] MEDS: traMADol HCl 50 MG TAB PO SCH ×2 (03:53→16:33)
[2022-04-16] MEDS: Gabapentin 100 MG CAP PO SCH ×3 (05:46→22:47)
[2022-04-16] MEDS: CEFAZOLIN 2 GM in Sodium Chloride 0.9% 100 ML IVPB SCH (05:48)
[2022-04-16 05:59] LABS: Anion Gap 12 mmol/L (10-20); BUN (Urea Nitrogen) 25 mg/dL (8.4-25.7); Calc. Creatinine Clearance 49 mL/min (70-130); Calcium 8.2 mg/dL (7.8-10.44); Carbon Dioxide 25 mmol/L (23-31); Chloride 98 mmol/L (98-107); Estimated GFR 75; Glucose 166 mg/dL (83-110); Magnesium 2.1 mg/dL (1.6-2.6); Phosphorus 3.1 mg/dL (2.3-4.7); Potassium 4.4 mmol/L (3.5-5.1); Sodium 131 mmol/L (136-145)
[2022-04-16 06:15] LABS: #Lymphocytes 0.4 thou/uL (1.20-3.40); #Monocytes 0.9 thou/uL (0.11-0.59); #Neutrophils 8.6 thou/uL (1.40-6.50); %Basophils 0.1 % (0.0-1.0); %Eosinophils 0.1 % (0.0-10.0); %Lymphocytes 3.6 % (21.0-51.0); %Monocytes 9.2 % (0.0-10.0); Hemoglobin 9.1 g/dL (14.0-18.0); Mean Corpuscular HGB CONC 33.8 g/dL (32.0-36.0); Mean Platelet Volume 7.2 fL (7.4-10.4); Platelet Count 109 thou/uL (130-400); Platelet Morphology Comment Appears Decreased; RBC Distribution Width 11.1 % (11.5-14.5); Red Blood Cell (RBC) Count 2.67 mill/uL (4.70-6.10); White Blood Cell (WBC) Count 9.9 thou/uL (4.8-10.8)
[2022-04-16] MEDS ORDERED: Acetaminophen/Codeine 30-300mg Tablet PO PRN (08:48)
[2022-04-16] MEDS: Mirtazapine 15 MG Soltab PO SCH (09:23)
[2022-04-16] MEDS: Apixaban 2.5 MG TAB PO SCH ×2 (09:24→20:16)
[2022-04-16] MEDS: Acetaminophen/Codeine 30-300mg Tablet PO SCH ×4 (09:24→22:48)
[2022-04-16] MEDS: Senokot S 8.6-50 MG TAB PO SCH ×2 (09:24→20:15)
[2022-04-16] MEDS: Finasteride 5 MG TAB PO SCH (09:24)
[2022-04-16] MEDS: Polyethylene Glycol 3350 17 GM Packet PO SCH (09:25)
[2022-04-16] MEDS: Acetaminophen 325 MG TAB PO SCH ×3 (12:25→22:47)
[2022-04-16] MEDS ORDERED: Ibuprofen 600 MG TAB PO SCH (14:00)
[2022-04-16] MEDS: Cyclobenzaprine 10 MG TAB PO PRN (20:15)
[2022-04-16] MEDS: Mirtazapine 30 MG TAB PO SCH (20:15)
[2022-04-16] MEDS: Ibuprofen 200 MG TAB PO SCH (20:16)
[2022-04-16] MEDS: Famotidine 20 MG TAB PO SCH (20:16)
[2022-04-16] MEDS: Atorvastatin Calcium 10 MG TAB PO SCH (20:16)
[2022-04-16] MEDS: Tamsulosin HCl 0.4 MG CAP PO SCH (20:16)
[2022-04-17] MEDS ORDERED: Haloperidol Lactate 5 MG/ML VIAL SLOW IVP SCH (01:30)
[2022-04-17] MEDS: Ibuprofen 200 MG TAB PO SCH ×3 (05:25→20:50)
[2022-04-17] MEDS: Acetaminophen 325 MG TAB PO SCH ×4 (05:26→22:55)
[2022-04-17] MEDS: Gabapentin 100 MG CAP PO SCH ×2 (05:27→13:08)
[2022-04-17] MEDS: Acetaminophen/Codeine 30-300mg Tablet PO SCH ×4 (05:27→22:56)
[2022-04-17 06:23] LABS: #Eosinphils 0.2 thou/uL (0.0-0.7); #Lymphocytes 0.6 thou/uL (1.20-3.40); #Monocytes 0.9 thou/uL (0.11-0.59); #Neutrophils 6.5 thou/uL (1.40-6.50); %Basophils 0.1 % (0.0-1.0); %Eosinophils 1.8 % (0.0-10.0); %Lymphocytes 7.1 % (21.0-51.0); %Monocytes 11.5 % (0.0-10.0); %Neutrophils 79.5 % (42.0-75.0); Hemoglobin 9.9 g/dL (14.0-18.0); Mean Corpuscular HGB CONC 34.5 g/dL (32.0-36.0); Mean Corpuscular Hemoglobin 35.3 pg (27.0-31.0); Mean Platelet Volume 7.5 fL (7.4-10.4); Platelet Count 144 thou/uL (130-400); RBC Distribution Width 11.1 % (11.5-14.5); Red Blood Cell (RBC) Count 2.79 mill/uL (4.70-6.10); White Blood Cell (WBC) Count 8.2 thou/uL (4.8-10.8)
[2022-04-17 06:51] LABS: Anion Gap 15 mmol/L (10-20); BUN (Urea Nitrogen) 30 mg/dL (8.4-25.7); Calc. Creatinine Clearance 48 mL/min (70-130); Calcium 8.6 mg/dL (7.8-10.44); Carbon Dioxide 25 mmol/L (23-31); Chloride 98 mmol/L (98-107); Estimated GFR 73; Glucose 114 mg/dL (83-110); Magnesium 2.1 mg/dL (1.6-2.6); Potassium 4.4 mmol/L (3.5-5.1); Sodium 134 mmol/L (136-145)
[2022-04-17] MEDS: Finasteride 5 MG TAB PO SCH (10:17)
[2022-04-17] MEDS: Apixaban 2.5 MG TAB PO SCH ×2 (10:17→20:50)
[2022-04-17] MEDS: Famotidine 20 MG TAB PO SCH ×2 (10:17→20:50)
[2022-04-17] MEDS: Senokot S 8.6-50 MG TAB PO SCH ×2 (10:18→20:50)
[2022-04-17] MEDS: Mirtazapine 15 MG Soltab PO SCH (10:18)
[2022-04-17] MEDS: Polyethylene Glycol 3350 17 GM Packet PO SCH (10:18)
[2022-04-17] MEDS ORDERED: Melatonin 3 MG TAB PO PRN (16:15)
[2022-04-17] MEDS: Mirtazapine 30 MG TAB PO SCH (20:50)
[2022-04-17] MEDS: Melatonin 3 MG TAB PO SCH (20:50)
[2022-04-17] MEDS: Atorvastatin Calcium 10 MG TAB PO SCH (20:50)
[2022-04-17] MEDS: Tamsulosin HCl 0.4 MG CAP PO SCH (20:51)
[2022-04-17] MEDS: Cyclobenzaprine 10 MG TAB PO PRN (22:57)
[2022-04-18] MEDS: Acetaminophen 325 MG TAB PO SCH ×2 (06:31→12:31)
[2022-04-18] MEDS: Ibuprofen 200 MG TAB PO SCH ×3 (06:32→21:24)
[2022-04-18] MEDS: Acetaminophen/Codeine 30-300mg Tablet PO SCH ×2 (06:32→12:30)
[2022-04-18] MEDS: Mirtazapine 15 MG Soltab PO SCH (09:18)
[2022-04-18] MEDS: Senokot S 8.6-50 MG TAB PO SCH ×2 (09:18→21:24)
[2022-04-18] MEDS: Apixaban 2.5 MG TAB PO SCH ×2 (09:18→21:23)
[2022-04-18] MEDS: Polyethylene Glycol 3350 17 GM Packet PO SCH (09:18)
[2022-04-18] MEDS: Famotidine 20 MG TAB PO SCH ×2 (09:18→21:24)
[2022-04-18] MEDS: Finasteride 5 MG TAB PO SCH (09:19)
[2022-04-18] MEDS: Acetaminophen 500 MG TAB PO SCH ×2 (17:07→23:35)
[2022-04-18] MEDS ORDERED: diphenhydrAMINE 50 MG/ML VIAL IM SCH (18:45)
[2022-04-18] MEDS ORDERED: Haloperidol Lactate 5 MG/ML VIAL SLOW IVP SCH (20:45)
[2022-04-18] MEDS ORDERED: Haloperidol Lactate 5 MG/ML VIAL ONE (20:50)
[2022-04-18] MEDS: Atorvastatin Calcium 10 MG TAB PO SCH (21:23)
[2022-04-18] MEDS: Tamsulosin HCl 0.4 MG CAP PO SCH (21:24)
[2022-04-18] MEDS: Mirtazapine 30 MG TAB PO SCH (21:24)
[2022-04-18] MEDS: Melatonin 3 MG TAB PO SCH (21:24)
[2022-04-18] MEDS ORDERED: Haloperidol Lactate 5 MG/ML VIAL SLOW IVP PRN (22:15)
[2022-04-19] MEDS ORDERED: Lorazepam (BATCHED) 2 MG/ML SYR SLOW IVP SCH (00:15)
[2022-04-19] MEDS: Acetaminophen 500 MG TAB PO SCH ×3 (06:50→18:15)
[2022-04-19] MEDS: Ibuprofen 200 MG TAB PO SCH ×3 (06:50→22:19)
[2022-04-19] MEDS: Famotidine 20 MG TAB PO SCH ×2 (12:39→22:18)
[2022-04-19] MEDS: Apixaban 2.5 MG TAB PO SCH ×2 (12:39→22:18)
[2022-04-19] MEDS: Mirtazapine 15 MG Soltab PO SCH (12:40)
[2022-04-19] MEDS: Finasteride 5 MG TAB PO SCH (12:40)
[2022-04-19] MEDS: Senokot S 8.6-50 MG TAB PO SCH ×2 (12:41→22:19)
[2022-04-19] MEDS: Polyethylene Glycol 3350 17 GM Packet PO SCH (12:41)
[2022-04-19] MEDS ORDERED: traZODone HCl 50 MG TAB PO SCH (21:00)
[2022-04-19] MEDS: Mirtazapine 30 MG TAB PO SCH (22:17)
[2022-04-19] MEDS: Tamsulosin HCl 0.4 MG CAP PO SCH (22:18)
[2022-04-19] MEDS: Melatonin 3 MG TAB PO SCH (22:19)
[2022-04-19] MEDS: Atorvastatin Calcium 10 MG TAB PO SCH (22:19)
[2022-04-20] MEDS: Acetaminophen 500 MG TAB PO SCH ×4 (01:59→17:02)
[2022-04-20] MEDS: Ibuprofen 200 MG TAB PO SCH (06:06)
[2022-04-20 06:30] LABS: ALT (SGPT) 24 U/L (8-55); AST (SGOT) 29 U/L (5-34); Alkaline Phosphatase 46 U/L (40-110); Anion Gap 13 mmol/L (10-20); BUN (Urea Nitrogen) 28 mg/dL (8.4-25.7); Bilirubin, Total 0.8 mg/dL (0.2-1.2); Calc. Creatinine Clearance 43 mL/min (70-130); Calcium 8.5 mg/dL (7.8-10.44); Carbon Dioxide 25 mmol/L (23-31); Chloride 100 mmol/L (98-107); Estimated GFR 65; Globulin 2.5 g/dL (2.4-3.5); Glucose 101 mg/dL (83-110); Potassium 3.9 mmol/L (3.5-5.1); Protein, Total 5.5 g/dL (5.8-8.1); Sodium 134 mmol/L (136-145)
[2022-04-20 07:00] LABS: Band 4 % (5-11); Eosinophils 4 % (0-10); Hemoglobin 8.6 g/dL (14.0-18.0); Lymphocytes 26 % (21-51); MDiff Complete? YES; Mean Corpuscular Hemoglobin 35.5 pg (27.0-31.0); Mean Platelet Volume 6.7 fL (7.4-10.4); Monocytes 16 % (0-10); Neutrophil 50 % (42-75); Platelet Count 184 thou/uL (130-400); RBC Distribution Width 10.8 % (11.5-14.5); Red Blood Cell (RBC) Count 2.41 mill/uL (4.70-6.10); White Blood Cell (WBC) Count 4.8 thou/uL (4.8-10.8)
[2022-04-20 08:50] LABS: Magnesium 2.1 mg/dL (1.6-2.6)
[2022-04-20] MEDS: Polyethylene Glycol 3350 17 GM Packet PO SCH (09:04)
[2022-04-20] MEDS: Ferrous Sulfate 325 MG TAB PO SCH ×2 (09:04→21:28)
[2022-04-20] MEDS: Finasteride 5 MG TAB PO SCH (09:04)
[2022-04-20] MEDS: Apixaban 2.5 MG TAB PO SCH ×2 (09:04→21:27)
[2022-04-20] MEDS: Mirtazapine 15 MG Soltab PO SCH (09:04)
[2022-04-20] MEDS: Senokot S 8.6-50 MG TAB PO SCH ×2 (09:04→21:31)
[2022-04-20] MEDS: Famotidine 20 MG TAB PO SCH ×2 (09:04→21:28)
[2022-04-20] MEDS: Ascorbic Acid 500 mg Chewable Tablet PO SCH ×2 (09:04→21:27)
[2022-04-20] MEDS ORDERED: Ibuprofen 200 MG TAB PO PRN (09:49)
[2022-04-20 14:09] LABS: Bilirubin Negative (Negative); Blood, Urine Negative (Negative); Clarity Clear (Clear); Glucose, Urine (Dipstick) Normal (Negative); Ketone, Urine Negative (Negative); Leukocyte 25 Leu/uL (Negative); Nitrite Negative (Negative); Protein, Urine (Dipstick) 10 mg/dL (Neg-Trace); RBC/HPF 0-3 HPF (0-3); Specific Gravity, Urine 1.015 (1.002-1.036); Squamous Epithelial 0-3 HPF (0-3); Urobilinogen Normal mg/dL (Less than 2); WBC/HPF 0-3 HPF (0-3); pH, Urine 5.5 (5.0-9.0)
[2022-04-20 14:10] LABS: Bacteria/HPF 1+ HPF (None Seen)
[2022-04-20 14:11] LABS: Urine Culture Reflex Yes Yes
[2022-04-20] MEDS ORDERED: traZODone HCl 50 MG TAB PO SCH (21:00)
[2022-04-20] MEDS: Mirtazapine 30 MG TAB PO SCH (21:27)
[2022-04-20] MEDS: Atorvastatin Calcium 10 MG TAB PO SCH (21:27)
[2022-04-20] MEDS: Melatonin 3 MG TAB PO SCH (21:28)
[2022-04-20] MEDS: Tamsulosin HCl 0.4 MG CAP PO SCH (21:28)
[2022-04-21] MEDS: Acetaminophen 500 MG TAB PO SCH ×3 (00:06→12:15)
[2022-04-21 06:37] LABS: Anion Gap 13 mmol/L (10-20); BUN (Urea Nitrogen) 32 mg/dL (8.4-25.7); Calc. Creatinine Clearance 43 mL/min (70-130); Calcium 8.4 mg/dL (7.8-10.44); Carbon Dioxide 27 mmol/L (23-31); Chloride 100 mmol/L (98-107); Estimated GFR 64; Glucose 110 mg/dL (83-110); Phosphorus 4.2 mg/dL (2.3-4.7); Potassium 4.6 mmol/L (3.5-5.1); Sodium 135 mmol/L (136-145)
[2022-04-21] MEDS ORDERED: Bisacodyl 10 MG SUPP PR PRN (08:33)
[2022-04-21] MEDS ORDERED: Dutasteride 0.5 MG CAP PO SCH (09:00)
[2022-04-21] MEDS ORDERED: Sodium Chloride 0.9% 500 ML IV SCH (09:15)
[2022-04-21] MEDS: Senokot S 8.6-50 MG TAB PO SCH (09:28)
[2022-04-21] MEDS: Finasteride 5 MG TAB PO SCH (09:29)
[2022-04-21] MEDS: Ferrous Sulfate 325 MG TAB PO SCH (09:29)
[2022-04-21] MEDS: Polyethylene Glycol 3350 17 GM Packet PO SCH (09:29)
[2022-04-21] MEDS: Apixaban 2.5 MG TAB PO SCH (09:29)
[2022-04-21] MEDS: Mirtazapine 15 MG Soltab PO SCH (09:29)
[2022-04-21] MEDS: Ascorbic Acid 500 mg Chewable Tablet PO SCH (09:29)
[2022-04-21 11:56] VITALS: BP 122/76; TEMP 97.7
[2022-04-21] MEDS ORDERED: CEFAZOLIN 1 GM VIAL SLOW IVP SCH (14:00)
[2022-04-21] MEDS ORDERED: Nitrofurantoin Monohyd/M-Cryst 100 MG CAP PO SCH (21:00)
[2022-04-21] MEDS ORDERED: Famotidine 20 MG TAB PO SCH (21:00)
== END 2022-04-21 13:25 | DRG 521 ==
LOC: ERS 13:22 → ERHOLD 14:28 → SJJU 18:51
PROVIDERS: ADMIT Surgery; ATTEND Surgery
PROC: 0SRR0JA Replacement of Right Hip Joint, Femoral Surface with Synthetic Substitute, Uncemented, Open Approach (ICD-10-PCS; principal; 2022-04-15)
DX: S72.011A Unspecified intracapsular fracture of right femur, initial encounter for closed fracture (principal); G93.41 Metabolic encephalopathy; D62 Acute posthemorrhagic anemia; I48.91 Unspecified atrial fibrillation; I25.10 Atherosclerotic heart disease of native coronary artery without angina pectoris; I10 Essential (primary) hypertension; N40.0 Benign prostatic hyperplasia without lower urinary tract symptoms; W19.XXXA Unspecified fall, initial encounter; Z66 Do not resuscitate; Z20.822 Contact with and (suspected) exposure to COVID-19; Z95.1 Presence of aortocoronary bypass graft; Z95.0 Presence of cardiac pacemaker; Z79.01 Long term (current) use of anticoagulants; Y92.009 Unspecified place in unspecified non-institutional (private) residence as the place of occurrence of the external cause; Z98.890 Other specified postprocedural states
CPT/HCPCS: 36415; 70450; 71045; 72125; 72170; 80048; 80053; 81001; 83735; 84100; 85025; 85610; 85730; 86850; 86900; 86901; 87077; 87086; 87186; 93005; 93010; 93306; 96374; 96375; C1713; C1776; G0390; J0690; J1100; J1170; J1200; J1630; J1885; J2060; J2270; J2405; J2550; J2704; J3490; J7030; U0002; U0003; U0005

== ENCOUNTER 2022-05-03 03:37 | Emergency (ER) | payer OTHER ==
[2022-05-03] MEDS ORDERED: Ketorolac Tromethamine 30 MG/ML VIAL ONE (04:00)
[2022-05-03] MEDS ORDERED: Lorazepam 2 MG/ML VIAL ONE (04:29)
== END 2022-05-03 05:51 | disposition home or self-care (01) ==
LOC: ERS 03:37
DX: S70.01XA Contusion of right hip, initial encounter (principal); F03.90 Unspecified dementia, unspecified severity, without behavioral disturbance, psychotic disturbance, mood disturbance, and anxiety; I48.91 Unspecified atrial fibrillation; I10 Essential (primary) hypertension; I25.10 Atherosclerotic heart disease of native coronary artery without angina pectoris; Z79.899 Other long term (current) drug therapy; Z79.01 Long term (current) use of anticoagulants; W19.XXXA Unspecified fall, initial encounter
CPT/HCPCS: 70450; 72170; 72192; 96374; 96375; J1885; J2060

== ENCOUNTER 2022-05-11 06:45 | Inpatient (IN) | payer OTHER ==
[2022-05-11 07:33] LABS: #Eosinphils 0.1 thou/uL (0.0-0.7); #Lymphocytes 0.5 thou/uL (1.20-3.40); #Monocytes 0.8 thou/uL (0.11-0.59); #Neutrophils 5.1 thou/uL (1.40-6.50); %Basophils 0.2 % (0.0-1.0); %Eosinophils 1.4 % (0.0-10.0); %Lymphocytes 8.2 % (21.0-51.0); %Monocytes 11.9 % (0.0-10.0); %Neutrophils 78.3 % (42.0-75.0); Hemoglobin 8.4 g/dL (14.0-18.0); Mean Corpuscular HGB CONC 32.6 g/dL (32.0-36.0); Mean Platelet Volume 6.4 fL (7.4-10.4); Platelet Count 262 thou/uL (130-400); RBC Distribution Width 12.7 % (11.5-14.5); Red Blood Cell (RBC) Count 2.46 mill/uL (4.70-6.10); White Blood Cell (WBC) Count 6.5 thou/uL (4.8-10.8)
[2022-05-11 07:48] LABS: ALT (SGPT) 14 U/L (8-55); AST (SGOT) 18 U/L (5-34); Albumin 3.7 g/dL (3.4-4.8); Alkaline Phosphatase 80 U/L (40-110); Anion Gap 14 mmol/L (10-20); BUN (Urea Nitrogen) 18 mg/dL (8.4-25.7); Bilirubin, Total 1.4 mg/dL (0.2-1.2); Calc. Creatinine Clearance 0 mL/min (70-130); Carbon Dioxide 24 mmol/L (23-31); Chloride 103 mmol/L (98-107); Estimated GFR 73; Globulin 2.9 g/dL (2.4-3.5); Glucose 150 mg/dL (83-110); Potassium 4.1 mmol/L (3.5-5.1); Protein, Total 6.6 g/dL (5.8-8.1); Sodium 137 mmol/L (136-145)
[2022-05-11] MEDS ORDERED: Fentanyl 100 MCG/2 ML VIAL ONE (07:57)
[2022-05-11] MEDS ORDERED: Iopamidol-370 76% 500 ML 1 ML ONE (08:40)
[2022-05-11 08:43] LABS: INR-International Normal Ratio 1.2; PTT 34.4 sec (22.9-36.1); Prothrombin Time 14.9 sec (12.0-14.7)
[2022-05-11] MEDS ORDERED: Midazolam HCl 2 mg/2 ml Vial ONE ×2 (08:43→10:17)
[2022-05-11 09:01] LABS: Actual Bicarbonate (HCO3v) 28 mEq/L (22-28); Base Excess 4.3 mEq/L (-2.0 to +3.0); Chloride (VBG) 103 mmol/L (98-106); Hemoglobin (Hb) 9.2 g/dL (12.6-17.4); Potassium (VBG) 4.03 mmol/L (3.70-5.30); Sodium 137.8 mmol/L (133-146); pH (venous) 7.49 (7.32-7.43)
[2022-05-11 11:05] LABS: Bilirubin Negative (Negative); Blood, Urine 1+ (Negative); Clarity Turbid (Clear); Glucose, Urine (Dipstick) Normal (Negative); Ketone, Urine Trace mg/dL (Negative); Leukocyte Negative Leu/uL (Negative); Nitrite Negative (Negative); Protein, Urine (Dipstick) Negative (Neg-Trace); Specific Gravity, Urine 1.023 (1.002-1.036); Squamous Epithelial 0-3 HPF (0-3); Urobilinogen Normal mg/dL (Less than 2); WBC/HPF None Seen HPF (0-3)
[2022-05-11 11:13] LABS: Bacteria/HPF Rare-Few HPF (None Seen)
[2022-05-11] MEDS ORDERED: Morphine 2 MG/ML VIAL ONE (11:34)
[2022-05-11] MEDS ORDERED: Acetaminophen 325 MG TAB ONE (12:08)
[2022-05-11 12:52] LABS: Magnesium 1.9 mg/dL (1.6-2.6)
[2022-05-11 18:52] LABS: Troponin I 0.027 ng/mL (< 0.028)
[2022-05-11] MEDS ORDERED: Ondansetron ODT 4 MG TAB PO PRN (19:04)
[2022-05-11 19:55] LABS: Lactic Acid 0.9 mmol/L (0.5-2.2)
[2022-05-11] MEDS: Morphine 2 MG/ML VIAL SLOW IVP PRN (20:04)
[2022-05-11] MEDS: Sodium Chloride 0.9% 1,000 ML IV SCH (20:04)
[2022-05-11 20:32] LABS: Troponin I 0.033 ng/mL (< 0.028)
[2022-05-11 20:43] VITALS: BMI 19.7
[2022-05-11] MEDS ORDERED: Lidocaine 5% Patch TD SCH (23:15)
[2022-05-12] MEDS: Morphine 2 MG/ML VIAL SLOW IVP PRN ×4 (03:43→22:13)
[2022-05-12 05:24] LABS: Band 3 % (5-11); Eosinophils 2 % (0-10); Hemoglobin 6.1 g/dL (14.0-18.0); Lymphocytes 11 % (21-51); MDiff Complete? YES; Macrocytosis SLIGHT = 6-15 cells (100X) (0-5/hpf); Mean Corpuscular HGB CONC 32.3 g/dL (32.0-36.0); Mean Corpuscular Hemoglobin 34.4 pg (27.0-31.0); Mean Platelet Volume 6.4 fL (7.4-10.4); Monocytes 4 % (0-10); Neutrophil 80 % (42-75); Platelet Count 185 thou/uL (130-400); Red Blood Cell (RBC) Count 1.78 mill/uL (4.70-6.10); White Blood Cell (WBC) Count 3.7 thou/uL (4.8-10.8)
[2022-05-12 05:40] LABS: Anion Gap 12 mmol/L (10-20); BUN (Urea Nitrogen) 16 mg/dL (8.4-25.7); Calc. Creatinine Clearance 62 mL/min (70-130); Carbon Dioxide 21 mmol/L (23-31); Chloride 107 mmol/L (98-107); Estimated GFR 89; Glucose 105 mg/dL (83-110); Potassium 3.6 mmol/L (3.5-5.1); Sodium 136 mmol/L (136-145)
[2022-05-12] MEDS: Finasteride 5 MG TAB PO SCH (09:23)
[2022-05-12] MEDS: Tamsulosin HCl 0.4 MG CAP PO SCH (09:23)
[2022-05-12] MEDS: Mirtazapine 15 MG Soltab PO SCH (09:23)
[2022-05-12] MEDS: Acetaminophen 325 MG TAB PO PRN (09:26)
[2022-05-12] MEDS: Sodium Chloride 0.9% 1,000 ML IV SCH ×2 (09:27→22:54)
[2022-05-12] MEDS ORDERED: Transdermal Patch Removal TOP SCH (11:00)
[2022-05-12] MEDS: Methocarbamol 500 MG TAB PO PRN ×2 (13:16→22:51)
[2022-05-12] MEDS: Acetaminophen/Codeine 30-300mg Tablet PO PRN (13:16)
[2022-05-12] MEDS: traZODone HCl 50 MG TAB PO SCH (22:09)
[2022-05-12] MEDS: Famotidine 20 MG TAB PO SCH (22:09)
[2022-05-12] MEDS: Mirtazapine 30 MG TAB PO SCH (22:09)
[2022-05-12] MEDS: Atorvastatin Calcium 10 MG TAB PO SCH (22:10)
[2022-05-12] MEDS ORDERED: Lidocaine 5% Patch TD PRN (23:00)
[2022-05-13] MEDS: Acetaminophen/Codeine 30-300mg Tablet PO PRN ×2 (01:28→20:18)
[2022-05-13 04:17] LABS: Mean Corpuscular HGB CONC 33.7 g/dL (32.0-36.0); Mean Corpuscular Hemoglobin 34.3 pg (27.0-31.0); Mean Platelet Volume 6.2 fL (7.4-10.4); Platelet Count 160 thou/uL (130-400); RBC Distribution Width 13.7 % (11.5-14.5); Red Blood Cell (RBC) Count 1.76 mill/uL (4.70-6.10); White Blood Cell (WBC) Count 6.7 thou/uL (4.8-10.8)
[2022-05-13] MEDS ORDERED: Iopamidol 370 76% 100 ML VIAL ONE (08:37)
[2022-05-13] MEDS: Tamsulosin HCl 0.4 MG CAP PO SCH (09:00)
[2022-05-13] MEDS: Finasteride 5 MG TAB PO SCH (09:00)
[2022-05-13] MEDS: Acetaminophen 325 MG TAB PO PRN (09:00)
[2022-05-13] MEDS: Mirtazapine 15 MG Soltab PO SCH (09:00)
[2022-05-13] MEDS ORDERED: ALPRAZolam 0.5 MG TAB PO PRN (09:25)
[2022-05-13] MEDS: Morphine 2 MG/ML VIAL SLOW IVP PRN (10:16)
[2022-05-13] MEDS ORDERED: Transdermal Patch Removal TOP PRN (11:00)
[2022-05-13] MEDS: Sodium Chloride 0.9% 1,000 ML IV SCH (15:30)
[2022-05-13] MEDS: Famotidine 20 MG TAB PO SCH (20:18)
[2022-05-13] MEDS: Atorvastatin Calcium 10 MG TAB PO SCH (20:18)
[2022-05-13] MEDS: Mirtazapine 30 MG TAB PO SCH (20:18)
[2022-05-13] MEDS: traZODone HCl 50 MG TAB PO SCH (20:18)
[2022-05-13 22:26] LABS: Hemoglobin 8.4 g/dL (14.0-18.0)
[2022-05-14] MEDS: Methocarbamol 500 MG TAB PO PRN (02:42)
[2022-05-14] MEDS: Morphine 2 MG/ML VIAL SLOW IVP PRN ×3 (05:00→17:13)
[2022-05-14 05:04] LABS: Anion Gap 9 mmol/L (10-20); BUN (Urea Nitrogen) 12 mg/dL (8.4-25.7); Calc. Creatinine Clearance 68 mL/min (70-130); Calcium 7.9 mg/dL (7.8-10.44); Carbon Dioxide 25 mmol/L (23-31); Chloride 108 mmol/L (98-107); Estimated GFR 91; Glucose 89 mg/dL (83-110); Potassium 3.5 mmol/L (3.5-5.1); Sodium 138 mmol/L (136-145)
[2022-05-14] MEDS: Sodium Chloride 0.9% 1,000 ML IV SCH ×2 (05:16→14:55)
[2022-05-14 05:17] LABS: Hemoglobin 8.5 g/dL (14.0-18.0); Mean Corpuscular HGB CONC 34.7 g/dL (32.0-36.0); Mean Corpuscular Hemoglobin 34.5 pg (27.0-31.0); Mean Corpuscular Volume 99.5 fL (78.0-98.0); Mean Platelet Volume 6.5 fL (7.4-10.4); Platelet Count 178 thou/uL (130-400); RBC Distribution Width 16.3 % (11.5-14.5); Red Blood Cell (RBC) Count 2.47 mill/uL (4.70-6.10); White Blood Cell (WBC) Count 4.6 thou/uL (4.8-10.8)
[2022-05-14] MEDS: Mirtazapine 15 MG Soltab PO SCH (09:15)
[2022-05-14] MEDS: Tamsulosin HCl 0.4 MG CAP PO SCH (09:15)
[2022-05-14] MEDS: Finasteride 5 MG TAB PO SCH (09:15)
[2022-05-14] MEDS: Acetaminophen/Codeine 30-300mg Tablet PO PRN (12:22)
[2022-05-14] MEDS ORDERED: Amlodipine 5 MG TAB PO SCH (17:00)
[2022-05-14] MEDS: Acetaminophen 325 MG TAB PO PRN (17:25)
[2022-05-14] MEDS: HYDROcodone/Acetaminophen 7.5/325 mg Tablet PO PRN (18:30)
[2022-05-14] MEDS: traZODone HCl 50 MG TAB PO SCH (22:05)
[2022-05-14] MEDS: Mirtazapine 30 MG TAB PO SCH (22:05)
[2022-05-14] MEDS: Famotidine 20 MG TAB PO SCH (22:05)
[2022-05-14] MEDS: Atorvastatin Calcium 10 MG TAB PO SCH (22:05)
[2022-05-15 04:41] LABS: Hemoglobin 9.6 g/dL (14.0-18.0); Mean Corpuscular HGB CONC 33.7 g/dL (32.0-36.0); Mean Corpuscular Hemoglobin 33.2 pg (27.0-31.0); Mean Corpuscular Volume 98.5 fL (78.0-98.0); Mean Platelet Volume 6.4 fL (7.4-10.4); Platelet Count 199 thou/uL (130-400); RBC Distribution Width 15.6 % (11.5-14.5); Red Blood Cell (RBC) Count 2.89 mill/uL (4.70-6.10)
[2022-05-15] MEDS: Sodium Chloride 0.9% 1,000 ML IV SCH ×2 (05:11→17:57)
[2022-05-15] MEDS: Finasteride 5 MG TAB PO SCH (09:28)
[2022-05-15] MEDS: Tamsulosin HCl 0.4 MG CAP PO SCH (09:28)
[2022-05-15] MEDS: Mirtazapine 15 MG Soltab PO SCH (09:28)
[2022-05-15] MEDS: HYDROcodone/Acetaminophen 7.5/325 mg Tablet PO PRN ×3 (10:10→21:25)
[2022-05-15] MEDS ORDERED: Metoprolol Tartrate 5 MG/5 ML VIAL IVP SCH (16:00)
[2022-05-15] MEDS ORDERED: Amlodipine 5 MG TAB PO SCH (17:00)
[2022-05-15] MEDS: Atorvastatin Calcium 10 MG TAB PO SCH (21:25)
[2022-05-15] MEDS: Mirtazapine 30 MG TAB PO SCH (21:25)
[2022-05-15] MEDS: traZODone HCl 50 MG TAB PO SCH (21:25)
[2022-05-15] MEDS: Famotidine 20 MG TAB PO SCH (21:25)
[2022-05-16] MEDS: Sodium Chloride 0.9% 1,000 ML IV SCH ×2 (04:50→21:59)
[2022-05-16] MEDS: Acetaminophen/Codeine 30-300mg Tablet PO PRN (07:49)
[2022-05-16] MEDS: Finasteride 5 MG TAB PO SCH (10:01)
[2022-05-16] MEDS: Mirtazapine 15 MG Soltab PO SCH (10:01)
[2022-05-16] MEDS: Tamsulosin HCl 0.4 MG CAP PO SCH (10:01)
[2022-05-16] MEDS: Acetaminophen 325 MG TAB PO PRN (10:08)
[2022-05-16 10:47] LABS: Anion Gap 11 mmol/L (10-20); BUN (Urea Nitrogen) 14 mg/dL (8.4-25.7); Calc. Creatinine Clearance 66 mL/min (70-130); Carbon Dioxide 25 mmol/L (23-31); Chloride 104 mmol/L (98-107); Estimated GFR 91; Glucose 157 mg/dL (83-110); Potassium 3.6 mmol/L (3.5-5.1); Sodium 136 mmol/L (136-145)
[2022-05-16] MEDS: HYDROcodone/Acetaminophen 7.5/325 mg Tablet PO PRN ×2 (13:06→22:00)
[2022-05-16] MEDS ORDERED: Amlodipine 5 MG TAB PO SCH (17:00)
[2022-05-16] MEDS: Famotidine 20 MG TAB PO SCH (21:59)
[2022-05-16] MEDS: Mirtazapine 30 MG TAB PO SCH (21:59)
[2022-05-16] MEDS: traZODone HCl 50 MG TAB PO SCH (21:59)
[2022-05-16] MEDS: Atorvastatin Calcium 10 MG TAB PO SCH (22:00)
[2022-05-17 05:14] LABS: Hemoglobin 8.6 g/dL (14.0-18.0); Mean Corpuscular HGB CONC 32.2 g/dL (32.0-36.0); Mean Corpuscular Hemoglobin 32.8 pg (27.0-31.0); Mean Platelet Volume 6.2 fL (7.4-10.4); Platelet Count 217 thou/uL (130-400); RBC Distribution Width 14.9 % (11.5-14.5); Red Blood Cell (RBC) Count 2.61 mill/uL (4.70-6.10); White Blood Cell (WBC) Count 6.2 thou/uL (4.8-10.8)
[2022-05-17] MEDS: Finasteride 5 MG TAB PO SCH (09:55)
[2022-05-17] MEDS: Tamsulosin HCl 0.4 MG CAP PO SCH (09:55)
[2022-05-17] MEDS: Mirtazapine 15 MG Soltab PO SCH (09:55)
[2022-05-17] MEDS: Sodium Chloride 0.9% 1,000 ML IV SCH (09:56)
[2022-05-17 10:55] VITALS: BP 165/85; TEMP 98
== END 2022-05-17 15:20 | DRG 605 ==
LOC: ERS 06:45 → EEVIPCON 06:45 → 2NO 17:55 → OBSVTOIN 05-12 11:49 → MSONC 05-17 02:12
PROVIDERS: ADMIT Internal Medicine; ATTEND Internal Medicine
PROC: 30233N1 Transfusion of Nonautologous Red Blood Cells into Peripheral Vein, Percutaneous Approach (ICD-10-PCS; principal; 2022-05-12)
DX: S30.0XXA Contusion of lower back and pelvis, initial encounter (principal); E87.2 Acidosis; D50.0 Iron deficiency anemia secondary to blood loss (chronic); Z66 Do not resuscitate; Z20.822 Contact with and (suspected) exposure to COVID-19; R29.6 Repeated falls; I48.0 Paroxysmal atrial fibrillation; Z96.641 Presence of right artificial hip joint; R03.0 Elevated blood-pressure reading, without diagnosis of hypertension; I25.10 Atherosclerotic heart disease of native coronary artery without angina pectoris; W18.30XA Fall on same level, unspecified, initial encounter; Y92.009 Unspecified place in unspecified non-institutional (private) residence as the place of occurrence of the external cause; Z79.899 Other long term (current) drug therapy; Z79.01 Long term (current) use of anticoagulants; Z95.1 Presence of aortocoronary bypass graft; Z91.81 History of falling; Z95.0 Presence of cardiac pacemaker; Z98.890 Other specified postprocedural states
CPT/HCPCS: 36415; 36430; 70450; 71045; 71260; 72125; 72170; 72193; 74177; 80048; 80053; 81003; 81015; 82140; 82550; 82805; 83605; 83735; 84443; 84484; 85025; 85027; 85610; 85730; 86850; 86900; 86901; 87040; 87086; 93005; 93010; 96361; 96374; 96375; 96376; 97139; G0378; J2250; J2270; J3010; J7050; P9016; Q9967; U0003; U0005

== ENCOUNTER 2022-10-13 09:42 | Outpatient (CLI) | payer MEDICARE | END 2022-10-13 09:43 | disposition home or self-care (01) | LOC: BICRAD 09:42 | PROVIDERS: ATTEND Family Medicine | DX: M25.551 Pain in right hip (principal) ==